=== PATIENT | male | born 1995 | race Two or more races ===

== ENCOUNTER 2017-06-02 04:33 | Emergency (ER) | payer MEDICAID, OTHER ==
[~2017-06-02] VITALS: Ht 167.6 cm; Wt 70.0 kg
[2017-06-02 04:37] VITALS: BP 154/83
== END 2017-06-02 05:20 | disposition left against medical advice (07) ==
LOC: ED 05:15
DX: M54.2 Cervicalgia (principal); Z53.21 Procedure and treatment not carried out due to patient leaving prior to being seen by health care provider
CPT/HCPCS: 93005; 99281

== ENCOUNTER 2017-06-03 15:03 | Emergency (ER) | payer OTHER ==
[~2017-06-03] VITALS: Ht 167.6 cm; Wt 68.0 kg
[2017-06-03] MEDS ORDERED: MECLIZINE CHEWABLE 25 MG TAB ONE (17:21)
[2017-06-03] MEDS ORDERED: KETOROLAC 30 MG/1 ML ONE (17:21)
[2017-06-03] MEDS: KETOROLAC 30 MG/1 ML IM ONE ×2 (17:29→17:30)
[2017-06-03] MEDS ORDERED: MECLIZINE CHEWABLE 25 MG TAB PO ONE (17:30)
[2017-06-03 17:54] LABS: BASOPHILS # (AUTO) 0.03 x10^3/uL (0-0.1); BASOPHILS % (AUTO) 0 % (0-1); EOSINOPHILS # (AUTO) 0.06 x10^3/uL (0-0.4); EOSINOPHILS % (AUTO) 1 % (1-7); LYMPHOCYTES # (AUTO) 1.73 x10^3/uL (1-3.4); LYMPHOCYTES % (AUTO) 18 % (22-44); MD NO; MEAN CORPUSCULAR HEMOGLOBIN 30.3 pg (27.5-34.5); MEAN CORPUSCULAR HGB CONC 33.8 g/dL (33.2-36.2); MEAN CORPUSCULAR VOLUME 89.7 fL (81-97); MEAN PLATELET VOLUME 7.7 fL (7.4-10.4); MONOCYTES # (AUTO) 0.79 x10^3/uL (0.2-0.8); MONOCYTES % (AUTO) 8 % (2-9); NEUTROPHILS % (AUTO) 73 % (42-75); PLATELET COUNT 357 x10^3/uL (130-400); RED BLOOD COUNT 5.45 x10^6/uL (4.38-5.82); RED CELL DISTRIBUTION WIDTH 12.3 % (9.4-14.8)
[2017-06-03 18:04] LABS: ALANINE AMINOTRANSFERASE 67 U/L (12-78); ALBUMIN 3.9 g/dL (3.4-5.0); ANION GAP 7 mmol/L (5-15); CHLORIDE 105 mmol/L (98-107)
[2017-06-03 18:14] LABS: ALKALINE PHOSPHATASE 60 U/L (45-117); BILIRUBIN,TOTAL 0.5 mg/dL (0.2-1.0); TOTAL PROTEIN 7.8 g/dL (6.4-8.2)
[2017-06-03 19:09] VITALS: BP 136/78
== END 2017-06-03 19:12 | disposition home or self-care (01) ==
LOC: ED 17:27
DX: H83.09 Labyrinthitis, unspecified ear (principal); R51 Headache
CPT/HCPCS: 36415; 70450; 80053; 84443; 85025; J1885

== ENCOUNTER 2017-06-04 17:03 | Emergency (ER) | payer OTHER ==
[~2017-06-04] VITALS: Ht 167.6 cm; Wt 67.9 kg
[2017-06-04 17:14] VITALS: BP 126/84
[2017-06-04 18:20] LABS: BASOPHILS # (AUTO) 0.03 x10^3/uL (0-0.1); BASOPHILS % (AUTO) 0 % (0-1); EOSINOPHILS # (AUTO) 0.05 x10^3/uL (0-0.4); EOSINOPHILS % (AUTO) 1 % (1-7); LYMPHOCYTES # (AUTO) 1.84 x10^3/uL (1-3.4); LYMPHOCYTES % (AUTO) 22 % (22-44); MD NO; MEAN CORPUSCULAR HEMOGLOBIN 30.2 pg (27.5-34.5); MEAN CORPUSCULAR HGB CONC 33.7 g/dL (33.2-36.2); MEAN CORPUSCULAR VOLUME 89.7 fL (81-97); MEAN PLATELET VOLUME 7.6 fL (7.4-10.4); MONOCYTES # (AUTO) 0.78 x10^3/uL (0.2-0.8); MONOCYTES % (AUTO) 9 % (2-9); NEUTROPHILS % (AUTO) 68 % (42-75); PLATELET COUNT 375 x10^3/uL (130-400); RED BLOOD COUNT 5.61 x10^6/uL (4.38-5.82); RED CELL DISTRIBUTION WIDTH 12.4 % (9.4-14.8)
[2017-06-04 18:23] LABS: ALANINE AMINOTRANSFERASE 62 U/L (12-78); ANION GAP 8 mmol/L (5-15); CALCIUM 9.3 mg/dL (8.5-10.1); CHLORIDE 105 mmol/L (98-107); CREATININE 0.85 mg/dL (0.7-1.3)
[2017-06-04 18:26] LABS: ALKALINE PHOSPHATASE 61 U/L (45-117); BILIRUBIN,TOTAL 0.4 mg/dL (0.2-1.0); TOTAL PROTEIN 8.2 g/dL (6.4-8.2)
[2017-06-04] MEDS ORDERED: KETOROLAC 30 MG/1 ML IM ONE (18:30)
[2017-06-04 18:35] LABS: MICROSCOPIC NOT IND
[2017-06-04 18:40] LABS: CULTURE INDICATED? NO
== END 2017-06-04 19:13 | disposition home or self-care (01) ==
LOC: ED 19:07
DX: M54.5 Low back pain (principal); M62.830 Muscle spasm of back; M62.838 Other muscle spasm
CPT/HCPCS: 36415; 80053; 81003; 83690; 85025; 99284

== ENCOUNTER 2017-06-05 14:00 | Emergency (ER) | payer SELFPAY ==
[~2017-06-05] VITALS: Ht 167.6 cm; Wt 67.0 kg
[2017-06-05 14:50] LABS: BASOPHILS # (AUTO) 0.04 x10^3/uL (0-0.1); BASOPHILS % (AUTO) 0 % (0-1); EOSINOPHILS # (AUTO) 0.04 x10^3/uL (0-0.4); EOSINOPHILS % (AUTO) 1 % (1-7); LYMPHOCYTES # (AUTO) 1.48 x10^3/uL (1-3.4); LYMPHOCYTES % (AUTO) 17 % (22-44); MD NO; MEAN CORPUSCULAR HEMOGLOBIN 30.3 pg (27.5-34.5); MEAN CORPUSCULAR HGB CONC 33.9 g/dL (33.2-36.2); MEAN CORPUSCULAR VOLUME 89.6 fL (81-97); MEAN PLATELET VOLUME 7.5 fL (7.4-10.4); MONOCYTES # (AUTO) 0.56 x10^3/uL (0.2-0.8); MONOCYTES % (AUTO) 6 % (2-9); NEUTROPHILS # (AUTO) 6.63 x10^3/uL (1.8-6.8); NEUTROPHILS % (AUTO) 76 % (42-75); PLATELET COUNT 350 x10^3/uL (130-400); RED BLOOD COUNT 5.63 x10^6/uL (4.38-5.82); RED CELL DISTRIBUTION WIDTH 12.1 % (9.4-14.8)
[2017-06-05 15:03] LABS: ALANINE AMINOTRANSFERASE 56 U/L (12-78); ANION GAP 8 mmol/L (5-15); CALCIUM 8.6 mg/dL (8.5-10.1); CHLORIDE 103 mmol/L (98-107); CREATININE 0.94 mg/dL (0.7-1.3)
[2017-06-05 15:05] LABS: ALKALINE PHOSPHATASE 66 U/L (45-117); BILIRUBIN,TOTAL 0.3 mg/dL (0.2-1.0); TOTAL PROTEIN 8.2 g/dL (6.4-8.2)
[2017-06-05] MEDS ORDERED: METHOCARBAMOL 750 MG TABLET PO ONE (15:30)
[2017-06-05] MEDS ORDERED: KETOROLAC 30 MG/1 ML IM ONE (15:30)
[2017-06-05] MEDS ORDERED: KETOROLAC 30 MG/1 ML ONE (15:37)
[2017-06-05] MEDS ORDERED: METHOCARBAMOL 750 MG TABLET ONE (15:37)
[2017-06-05 16:32] VITALS: BP 132/49
[2017-06-05 16:39] LABS: MICROSCOPIC NOT IND
[2017-06-05 16:42] LABS: CULTURE INDICATED? NO
[2017-06-05 16:53] LABS: AMPHETAMINE SCREEN, URINE Negative (Negative); BARBITURATE SCREEN, URINE Negative (Negative); BENZODIAZEPINE SCREEN, URINE Negative (Negative); CANNABINOID SCREEN, URINE Negative (Negative); COCAINE SCREEN, URINE Negative (Negative); METHADONE SCREEN, URINE Negative (Negative); OPIATE SCREEN, URINE Negative (Negative)
== END 2017-06-05 17:13 | disposition home or self-care (01) ==
LOC: ED 16:52
DX: M62.830 Muscle spasm of back (principal); M54.5 Low back pain
CPT/HCPCS: 36415; 74022; 80053; 80307; 81003; 83690; 85025; 96372; 99285; J1885; G0479

== ENCOUNTER 2017-06-06 05:30 | Emergency (ER) | payer SELFPAY ==
[~2017-06-06] VITALS: Ht 165.1 cm; Wt 68.0 kg
[2017-06-06] MEDS ORDERED: KETOROLAC 30 MG/1 ML IVPush ONE (06:30)
[2017-06-06] MEDS ORDERED: MAGNESIUM CITRATE 300ML ORAL SOL PO ONE (06:30)
[2017-06-06] MEDS ORDERED: SODIUM CHLORIDE FLUSH 10ML SYR IVF ONE (06:30)
[2017-06-06] MEDS ORDERED: SODIUM CHLORIDE 0.9% 1,000ML IVBOLUS ONE (06:30)
[2017-06-06] MEDS ORDERED: LORazepam 1MG TABLET ONE (06:40)
[2017-06-06] MEDS ORDERED: LORazepam 1MG TABLET PO ONE (07:00)
[2017-06-06 07:03] VITALS: BP 115/65
== END 2017-06-06 07:05 | disposition home or self-care (01) ==
LOC: ED 06:06
DX: K59.00 Constipation, unspecified (principal); M79.1 Myalgia
CPT/HCPCS: 99283

== ENCOUNTER 2017-06-26 13:00 | Emergency (ER) | payer OTHER ==
[~2017-06-26] VITALS: Ht 167.6 cm; Wt 66.0 kg
[2017-06-26 13:04] VITALS: BP 130/84
[2017-06-26] MEDS ORDERED: OMNIPAQUE 350 MG/ML, 100ML BOTTLE ONE (16:57)
== END 2017-06-26 17:08 | disposition home or self-care (01) ==
LOC: ED 17:02
DX: S16.1XXA Strain of muscle, fascia and tendon at neck level, initial encounter (principal); X58.XXXA Exposure to other specified factors, initial encounter; Y93.67 Activity, basketball; Y92.310 Basketball court as the place of occurrence of the external cause; Y99.8 Other external cause status
CPT/HCPCS: 70498; 72050; 99284; Q9967